=== PATIENT | female | born 1980 ===

== ENCOUNTER 2017-03-11 20:24 | Emergency (ER) | payer OTHER ==
[2017-03-11] MEDS ORDERED: DUONEB *Not for PRN Use IH ONE (20:27)
[2017-03-11] MEDS ORDERED: PROVENTIL IH ONE ×2 (20:47→22:00)
[2017-03-11 21:10] LABS: Basophils % (Auto) 0.4 % (0.0-1.8); Eosinophils % (Auto) 3.4 % (0.0-4.3); Hematocrit 40.9 % (30.3-42.9); Hemoglobin 13.3 gm/dl (10.1-14.3); Mean Corpuscular HGB Conc 32 % (30-34); Mean Corpuscular Hemoglobin 30 pg (28-32); Mean Corpuscular Volume 92 fl (79-97); Platelet Count 351 K/mm3 (140-440); Red Blood Count 4.47 M/mm3 (3.65-5.03); Red Cell Distribution Width 14.2 % (13.2-15.2); White Blood Count 12.4 K/mm3 (4.5-11.0)
[2017-03-11 21:34] LABS: Anion Gap 20 mmol/L; BUN/Creatinine Ratio 16; Blood Urea Nitrogen 13 mg/dL (7-17); Carbon Dioxide 22 mmol/L (22-30); Chloride 103.1 mmol/L (98-107); Glucose 142 mg/dL (65-100); Potassium 3.5 mmol/L (3.6-5.0); Sodium 142 mmol/L (137-145)
[2017-03-11] MEDS ORDERED: ATROVENT IH ONE (22:00)
[2017-03-11] MEDS ORDERED: DELTASONE PO ONE (22:34)
--- NOTE | 2017-03-11 22:35 | Emergency Department Report ---
ED Shortness of Breath HPI - General Chief Complaint: Adult Asthma Stated Complaint: ASTHMA ATTACK Time Seen by Provider: 03/11/17 21:59 Source: patient Mode of arrival: Wheelchair Limitations: No Limitations - History of Present Illness MD Complaint: shortness of breath -: This morning Known History Of: asthma Context: recent URI - Related Data Previous Rx's Medication Instructions Recorded Last Taken Type ALBUTEROL NEB's [Proventil 0.083% 2.5 mg IH TID PRN #1 box 03/12/17 Unknown Rx NEBS] Dexamethasone 20 mg PO ONCE #1 tablet 03/12/17 Unknown Rx Ipratropium [Atrovent] 0.5 mg IH Q6HRT #1 box 03/12/17 Unknown Rx Ipratropium/Albuter (Nf) 2 puff IH QID #1 inha 03/12/17 Unknown Rx [Combivent (Nf)] Allergies Allergy/AdvReac Type Severity Reaction Status Date / Time No Known Allergies Allergy Unverified 03/11/17 20:47 ED Review of Systems ROS: Stated complaint: ASTHMA ATTACK Other details as noted in HPI ED Past Medical Hx - Past Medical History Hx Asthma: Yes - Surgical History Past Surgical History?: No - Social History Smoking Status: Current Every Day Smoker Substance Use Type: None - Medications Home Medications: Home Medications Medication Instructions Recorded Confirmed Last Taken Type ALBUTEROL NEB's [Proventil 0.083% 2.5 mg IH TID PRN #1 box 03/12/17 Unknown Rx NEBS] Dexamethasone 20 mg PO ONCE #1 tablet 03/12/17 Unknown Rx Ipratropium [Atrovent] 0.5 mg IH Q6HRT #1 box 03/12/17 Unknown Rx Ipratropium/Albuter (Nf) 2 puff IH QID #1 inha 03/12/17 Unknown Rx [Combivent (Nf)] ED Physical Exam - General Limitations: No Limitations General appearance: alert, in no apparent distress - Head Head exam: Present: atraumatic, normocephalic - Eye Eye exam: Present: normal appearance, EOMI - ENT ENT exam: Present: mucous membranes moist - Neck Neck exam: Present: normal inspection, full ROM - Respiratory Respiratory exam: Present: normal lung sounds bilaterally, respiratory distress , wheezes - Cardiovascular Cardiovascular Exam: Present: normal rhythm, tachycardia, normal heart sounds. Absent: systolic murmur, diastolic murmur, rubs, gallop - GI/Abdominal GI/Abdominal exam: Present: soft, normal bowel sounds. Absent: tenderness - Rectal Rectal exam: Present: deferred - Extremities Exam Extremities exam: Present: normal inspection, full ROM - Back Exam Back exam: Present: normal inspection, full ROM - Neurological Exam Neurological exam: Present: alert, oriented X3, CN II-XII intact - Psychiatric Psychiatric exam: Present: normal affect, normal mood - Skin Skin exam: Present: warm, dry, intact, normal color. Absent: rash ED Course Vital Signs 03/11/17 03/11/17 03/11/17 20:43 21:59 22:00 Temperature 98.2 F Pulse Rate 121 H Pulse Rate [ Bilateral Throughout] Respiratory 20 Rate Respiratory Rate [Bilateral Throughout] Blood Pressure 111/69 O2 Sat by Pulse 99 96 96 Oximetry 03/11/17 03/11/17 03/11/17 22:09 22:15 22:30 Temperature Pulse Rate Pulse Rate [ Bilateral Throughout] Respiratory 20 Rate Respiratory Rate [Bilateral Throughout] Blood Pressure 119/62 116/64 O2 Sat by Pulse 95 93 97 Oximetry 03/11/17 03/11/17 03/11/17 22:35 22:45 23:00 Temperature Pulse Rate Pulse Rate [ 85 Bilateral Throughout] Respiratory Rate Respiratory 21 Rate [Bilateral Throughout] Blood Pressure 116/64 105/44 O2 Sat by Pulse 100 96 Oximetry 03/11/17 03/11/17 03/11/17 23:16 23:24 23:30 Temperature Pulse Rate Pulse Rate [ 90 Bilateral Throughout] Respiratory Rate Respiratory 18 Rate [Bilateral Throughout] Blood Pressure 98/53 O2 Sat by Pulse 95 93 Oximetry 03/11/17 03/12/17 03/12/17 23:46 00:00 00:12 Temperature Pulse Rate Pulse Rate [ Bilateral Throughout] Respiratory Rate Respiratory Rate [Bilateral Throughout] Blood Pressure 107/61 116/62 116/62 O2 Sat by Pulse 94 90 93 Oximetry 03/12/17 03/12/17 03/12/17 00:16 00:30 00:46 Temperature Pulse Rate Pulse Rate [ Bilateral Throughout] Respiratory Rate Respiratory Rate [Bilateral Throughout] Blood Pressure 116/62 105/55 105/55 O2 Sat by Pulse 92 89 89 Oximetry 03/12/17 03/12/17 03/12/17 01:00 01:16 01:17 Temperature Pulse Rate Pulse Rate [ 88 Bilateral Throughout] Respiratory Rate Respiratory 22 Rate [Bilateral Throughout] Blood Pressure 107/54 107/54 O2 Sat by Pulse 86 99 Oximetry 03/12/17 03/12/17 01:30 01:46 Temperature Pulse Rate Pulse Rate [ Bilateral Throughout] Respiratory Rate Respiratory Rate [Bilateral Throughout] Blood Pressure 116/68 116/68 O2 Sat by Pulse 91 92 Oximetry ED Medical Decision Making - Lab Data Result diagrams: 03/11/17 21:01 03/11/17 21:01 - EKG Data -: EKG Interpreted by Tn EKG shows normal: sinus rhythm, axis, intervals, QRS complexes, ST-T waves - Radiology Data Radiology results: pending (CXR: NEGATIVE FOR ACUTE), report reviewed (CXR: NEGATIVE), image reviewed Critical care attestation.: If time is entered above; I have spent that time in minutes in the direct care of this critically ill patient, excluding procedure time. ED Disposition Clinical Impression: Asthma attack Qualifiers: Asthma severity: severe Asthma persistence: persistent Qualified Code(s): J45.51 - Severe persistent asthma with (acute) exacerbation Disposition: TO HOME OR SELFCARE Is pt being admited?: No Does the pt Need Aspirin: No Condition: Stable Instructions: Asthma (ED) Prescriptions: ALBUTEROL NEB's [Proventil 0.083% NEBS] 2.5 mg IH TID PRN #1 box PRN Reason: Dyspnea Dexamethasone 20 mg PO ONCE #1 tablet Ipratropium [Atrovent] 0.5 mg IH Q6HRT #1 box Ipratropium/Albuter (Nf) [Combivent (Nf)] 2 puff IH QID #1 inha Referrals: VETO PARKER MD [Primary Care Provider] - 3-5 Days Time of Disposition: 01:57
[2017-03-12] MEDS ORDERED: PROVENTIL IH ONE (00:56)
--- NOTE | 2017-03-12 02:12 | XRay Report ---
FINAL REPORT PROCEDURE: XR CHEST ROUTINE 2V TECHNIQUE: PA and lateral chest radiographs were obtained. CPT 77348 HISTORY: Shortness of breath COMPARISON: No prior studies are available for comparison. FINDINGS: Heart: Normal. Mediastinum/Vessels: Normal. Lungs/Pleural space: Normal. Bony thorax: No acute osseous abnormality. Other: IMPRESSION: Normal examination.
[2017-03-12 02:31] VITALS: BP 100/51
== END 2017-03-12 02:34 | disposition home or self-care (01) ==
LOC: ED 20:24
DX: J45.51 Severe persistent asthma with (acute) exacerbation (principal); F17.200 Nicotine dependence, unspecified, uncomplicated
CPT/HCPCS: 36415; 71020; 80048; 84484; 84702; 85025; 93005; 93010; 94640; 99284; J7512